=== PATIENT | female | born 1995 | race Hispanic/Latino ===

== ENCOUNTER → 2024-02-10 | Outpatient (CLI) | payer OTHER ==
[~2024-02-10] MED LIST: ONDA-243 PO
== END | disposition home or self-care (01) ==
LOC: RAH 13:17
PROVIDERS: ATTEND Family Medicine
DX: M25.561 Pain in right knee (principal); M25.532 Pain in left wrist; M25.531 Pain in right wrist; M54.2 Cervicalgia; Z98.890 Other specified postprocedural states
CPT/HCPCS: 72040; 73110; 73560

== ENCOUNTER 2024-06-03 08:43 | Emergency (ER) | payer OTHER ==
[~2024-06-03] VITALS: Ht 154.9 cm; Wt 50.8 kg
[2024-06-03 09:28] LABS: BASOPHILS # (AUTO) 0.02 K/uL (0.00-0.20); BASOPHILS % (AUTO) 0.3 % (0.0-5.0); EOSINOPHILS # (AUTO) 0.11 K/uL (0.00-0.70); EOSINOPHILS % (AUTO) 1.7 % (0.0-8.0); HEMATOCRIT 40.4 % (36-48); IMMATURE GRANULOCYTE ABSOLUTE 0.01 K/uL (0-1); LYMPHOCYTES # (AUTO) 1.3 K/uL (1.0-4.8); LYMPHOCYTES % (AUTO) 20.9 % (21.0-51.0); MEAN CORPUSCULAR HEMOGLOBIN 29.6 pg (27.0-33.0); MEAN CORPUSCULAR HGB CONC 33.7 g/dL (32.0-36.0); MEAN CORPUSCULAR VOLUME 87.8 fL (79-99); MONOCYTES # (AUTO) 0.4 K/uL (0.1-1.0); MONOCYTES % (AUTO) 5.5 % (3.0-13.0); NEUTROPHILS # (AUTO) 4.6 K/uL (1.8-7.7); NEUTROPHILS % (AUTO) 71.4 % (40.0-77.0); PLATELET COUNT (AUTO) 232 K/uL (130-400); RED CELL DISTRIBUTION WIDTH 12.1 % (11.0-15.5); WHITE BLOOD COUNT (AUTO) 6.4 K/uL (4.8-10.8)
[2024-06-03] MEDS ORDERED: PREN1CAP37 PO (12:05)
[2024-06-03 12:10] VITALS: BP 111/79; PULSE 77; RESP 20; TEMP 98.3; O2SAT 99
== END 2024-06-03 12:09 | disposition home or self-care (01) ==
LOC: EDH 08:43
DX: O20.9 Hemorrhage in early pregnancy, unspecified (principal); O26.891 Other specified pregnancy related conditions, first trimester; R10.2 Pelvic and perineal pain; Z3A.01 Less than 8 weeks gestation of pregnancy
CPT/HCPCS: 36415; 76817; 81025; 84702; 85025; 86900; 86901

== ENCOUNTER 2024-06-23 20:29 | Emergency (ER) | payer OTHER ==
[~2024-06-23] VITALS: Ht 157.5 cm; Wt 50.8 kg
[~2024-06-23 20:29] MED LIST changes: +PREN1CAP37 PO
[2024-06-23] MEDS: acetaMINOPHEN 500 MG TABLET PO ONE (21:02)
[2024-06-23 21:54] VITALS: BP 127/80; PULSE 74; RESP 18; TEMP 98.1; O2SAT 95
== END 2024-06-23 22:01 | disposition home or self-care (01) ==
LOC: EDH 20:29
DX: G44.309 Post-traumatic headache, unspecified, not intractable (principal); H93.19 Tinnitus, unspecified ear; Z79.899 Other long term (current) drug therapy; Z98.890 Other specified postprocedural states; V89.2XXA Person injured in unspecified motor-vehicle accident, traffic, initial encounter; Y93.89 Activity, other specified; Y92.488 Other paved roadways as the place of occurrence of the external cause; Y99.8 Other external cause status
CPT/HCPCS: 36415; 70450; 84703